=== PATIENT | female | born 1990 | race American Indian/Alaskan Native ===

== ENCOUNTER 2018-11-14 13:33 | Emergency (ER) | payer OTHER ==
--- NOTE | 2018-11-14 14:05 | Emergency Department Report ---
Chief Complaint: Nausea/Vomiting/Diarrhea Stated Complaint: VOMIT Time Seen by Provider: 11/14/18 14:03 - HPI History of Present Illness: pt states she has N/V that began at 5 pm yesterday states her LNMP was a month and a half ago states she took two test which were negative no abd pain denies diarrhea no fever no new foods, no water from different source, no recent travel (+) smoker occ drinker no drug use MSE screening note: Focused history performed Due to findings the following was ordered: CBC, BMP, hcg, UA ED Disposition for MSE Condition: Stable
[2018-11-14] MEDS ORDERED: ZOFRAN ODT PO ONE (14:06)
[2018-11-14] MEDS ORDERED: ZOFRAN ODT ONE (14:08)
[2018-11-14 15:14] LABS: Eosinophils % (Auto) 0.1 % (0.0-4.3); Hematocrit 30.8 % (30.3-42.9); Hemoglobin 10.2 gm/dl (10.1-14.3); Lymphocytes # (Auto) 1.7 K/mm3 (1.2-5.4); Mean Corpuscular HGB Conc 33 % (30-34); Mean Corpuscular Volume 80 fl (79-97); Monocytes # (Auto) 1.1 K/mm3 (0.0-0.8); Monocytes % (Auto) 5.9 % (0.0-7.3); Platelet Count 440 K/mm3 (140-440); Red Blood Count 3.83 M/mm3 (3.65-5.03); Red Cell Distribution Width 16.2 % (13.2-15.2)
[2018-11-14 15:35] LABS: BUN/Creatinine Ratio 18; Blood Urea Nitrogen 7 mg/dL (7-17); Calcium 8.9 mg/dL (8.4-10.2); Hemolysis Index 3
[2018-11-14 15:42] LABS: Bilirubin,Urine NEG (Negative); Blood,Urine NEG (Negative); Color,Urine Amber (Yellow); Mucus,Urine 3+ /HPF
[2018-11-14] MEDS ORDERED: NACL 0.9% 1000 ML 1,000 ML IV ONE ×2 (17:00→18:27)
[2018-11-14] MEDS ORDERED: ZOFRAN IV ONE (17:01)
[2018-11-14] MEDS ORDERED: ZOFRAN ONE (17:04)
[2018-11-14] MEDS ORDERED: REGLAN IV STA (17:37)
[2018-11-14] MEDS ORDERED: VITAMIN B-6 PO STA (17:37)
[2018-11-14] MEDS ORDERED: BENADRYL IV STA (17:37)
--- NOTE | 2018-11-14 18:33 | Emergency Department Report ---
ED N/V/D HPI - General Chief complaint: Nausea/Vomiting/Diarrhea Stated complaint: VOMIT Time Seen by Provider: 11/14/18 14:03 Source: patient Mode of arrival: Ambulatory Limitations: No Limitations - History of Present Illness Initial comments: 28-year-old obese [place] female last visit. 6 weeks ago. Since emerge department complaining of sudden onset of nausea and vomiting associated with soreness and malaise since the onset. Reports no fever, chills, sweats, chest pain, palpitations, hematemesis, hematochezia cheesy, calm hematuria. No trau ma, no headache, no blurred vision. MD complaint: nausea, vomiting -: Sudden Description of Vomiting: bilious Description of Diarrhea: other (no diarrhea. Only nausea and vomiting) Associated Abdominal Pain: No Radiation: none Quality: dull (dull soreness to the body from all the retching) Improves with: none Worsens with: none Associated Symptoms: denies other symptoms, myalgias, malaise, nausea/vomiting. denies: chest pain, cough, fever/chills, loss of appetite, syncope, weakness - Related Data Previous Rx's Medication Instructions Recorded Last Taken Type Doxylamine Succinate/Vit B6 1 each PO TID PRN #30 tablet. 11/14/18 Unknown Rx [Michael Baeza 10-10 mg Tablet] 118/Iron/Folate 6/Dha 1 each PO DAILY #30 capsule 11/14/18 Unknown Rx [[facility] Softgel] Allergies Allergy/AdvReac Type Severity Reaction Status Date / Time No Known Allergies Allergy Unverified 11/14/18 13:44 ED Review of Systems ROS: Stated complaint: VOMIT Other details as noted in HPI Constitutional: denies: chills, fever Eyes: denies: eye pain, eye discharge, vision change ENT: denies: ear pain, throat pain Respiratory: denies: cough, shortness of breath, wheezing Cardiovascular: denies: chest pain, palpitations Endocrine: no symptoms reported Gastrointestinal: denies: abdominal pain, nausea, diarrhea Genitourinary: denies: urgency, dysuria, discharge Musculoskeletal: denies: back pain, joint swelling, arthralgia Skin: denies: rash, lesions Neurological: denies: headache, weakness, paresthesias Psychiatric: denies: anxiety, depression Hematological/Lymphatic: denies: easy bleeding, easy bruising ED Past Medical Hx - Past Medical History Previous Medical History?: No - Surgical History Past Surgical History?: Yes Additional Surgical History: C section - Social History Smoking Status: Current Every Day Smoker Substance Use Type: Alcohol - Medications Home Medications: Home Medications Medication Instructions Recorded Confirmed Last Taken Type Doxylamine Succinate/Vit B6 1 each PO TID PRN #30 tablet.dr 11/14/18 Unknown Rx [Diclegis Dr 10-10 mg Tablet] 118/Iron/Folate 6/Dha 1 each PO DAILY #30 capsule 11/14/18 Unknown Rx [[facility] Softgel] ED Physical Exam - General Limitations: No Limitations General appearance: alert, in no apparent distress - Head Head exam: Present: atraumatic, normocephalic - Eye Eye exam: Present: normal appearance, PERRL Pupils: Present: normal accommodation - ENT ENT exam: Present: normal exam, normal orophraynx, mucous membranes moist - Neck Neck exam: Present: normal inspection, full ROM - Respiratory Respiratory exam: Present: normal lung sounds bilaterally. Absent: respiratory distress, wheezes, rales, rhonchi, chest wall tenderness, accessory muscle use, decreased breath sounds - Cardiovascular Cardiovascular Exam: Present: regular rate, normal rhythm. Absent: systolic murmur, diastolic murmur, rubs, gallop - GI/Abdominal GI/Abdominal exam: Present: soft, normal bowel sounds - Extremities Exam Extremities exam: Present: normal inspection, full ROM, normal capillary refill - Back Exam Back exam: Present: normal inspection - Neurological Exam Neurological exam: Present: alert, oriented X3, CN II-XII intact - Psychiatric Psychiatric exam: Present: normal affect, normal mood. Absent: anxious, flat affect, manic - Skin Skin exam: Present: warm, dry, intact, normal color. Absent: rash ED Course Vital Signs 11/14/18 11/14/18 11/14/18 14:03 19:10 21:02 Temperature 97.4 F L Pulse Rate 65 68 Respiratory 20 18 18 Rate Blood Pressure 138/85 Blood Pressure 129/82 [Left] O2 Sat by Pulse 100 100 100 Oximetry ED Medical Decision Making - Lab Data Result diagrams: 11/14/18 15:02 11/14/18 15:02 - Medical Decision Making 28-year-old female with nausea and vomiting and diffuse aches. No presyncope, headache, feels much better after the medication was provided. Fluids was given. She is ambulatory, able tolerate oral and she is urinating. Advised to follow with [facility] for definitive management by recommended for definitive care and management of her . She will be discharged with anti-medics and vitamins. Critical care attestation.: If time is entered above; I have spent that time in minutes in the direct care of this critically ill patient, excluding procedure time. ED Disposition Clinical Impression: Hyperemesis Disposition: DC- TO HOME OR SELFCARE Is pt being admited?: No Does the pt Need Aspirin: No Condition: Stable Instructions: Hyperemesis Gravidarum (ED) Prescriptions: Doxylamine Succinate/Vit B6 [Michael Baeza 10-10 mg Tablet] 1 each PO TID PRN #30 tablet. PRN Reason: Vomiting 118/Iron/Folate 6/Dha [[facility] Softgel] 1 each PO DAILY #30 capsule [facility] MD VERONICA [Primary Care Provider] - 3-5 Days [facility] [Provider Group] - 3-5 Days
[2018-11-14 21:29] VITALS: BP 129/82
== END 2018-11-14 21:05 | disposition home or self-care (01) ==
LOC: ED 13:33
DX: O21.9 Vomiting of pregnancy, unspecified (principal); O99.331 Smoking (tobacco) complicating pregnancy, first trimester; F17.200 Nicotine dependence, unspecified, uncomplicated; Z3A.01 Less than 8 weeks gestation of pregnancy
CPT/HCPCS: 36415; 80048; 81001; 84702; 85025; 96361; 96374; 96375; 99283; J1200; J2405; J2765; J7030; Q0162

== ENCOUNTER 2018-12-31 22:45 | Inpatient (IN) | payer OTHER, MEDICAID ==
--- NOTE | 2019-01-01 02:12 | Ultrasound Report ---
PROCEDURE: US OB FOLLOW UP TECHNIQUE: Real-time limited sonographic examination was performed for evaluation of for each fetus with image documentation (1 or more fetuses). HISTORY: MEASUREMENT OF FETUS DUE DATE COMPARISONS: None . FINDINGS: MATERNAL Uterus: Within normal limits . Cervix length:, 3.1 cm. Internal Os: closed . FETUS IUP: Single living intrauterine . Position: Vertex . Placental position: Anterior, without previa . Amniotic fluid volume: Normal Heart rate and rhythm: 141 BPM, Regular . anatomic survey: Not performed on this study . MEASUREMENTS BPD: 8.4 cm . HC: 32.2 cm . AC: 32.8 cm . FL: 7.2 cm . Mean Gestational Age (composite criteria): 36 weeks 4 days . Ratio biometry: Normal . Estimated Weight: 3010 grams Interval growth: No prior studies . Estimated Due Date (earliest scan): 01/25/2019 . IMPRESSION: 1. Single living intrauterine gestation at approximately 36 weeks 4 days . 2. EDC by US 01/25/2019 . This document is electronically signed by Dawn Perry DO., January 01 2019 02:10:53 AM ET
--- NOTE | 2019-01-01 02:13 | Ultrasound Report ---
PROCEDURE: US OB BPP WO NON-STRESS TECHNIQUE: Sonographic evaluation for breathing, movement, tone, and amniotic flui d volume was performed. HISTORY: [place] Fluid, ROWAN, BPP ...36 WEEKS COMPARISONS: None . FINDINGS: FETUS Amniotic fluid volume Normal-score 2. At least one vertical pocket >2 cm or more in vertical axis . breathing: Normal-score 2 . movement: Normal-score 2 . tone: Normal-score 2 . Score: 8 of 8 . IMPRESSION: Normal biophysical profile . This document is electronically signed by Dawn Perry DO., January 01 2019 02:11:43 AM ET
[2019-01-01] MEDS ORDERED: BICITRA PO ONE (02:19)
[2019-01-01] MEDS ORDERED: LACTATED RINGERS 1,000 ML ONE (02:19)
[2019-01-01] MEDS ORDERED: REGLAN IV ONE (02:19)
[2019-01-01] MEDS ORDERED: PEPCID IV ONE (02:19)
--- NOTE | 2019-01-01 02:25 | History and Physical Report ---
History of Present Illness Date of examination: 01/01/19 Chief complaint: SROM @1999 History of present illness: Pt is a 28yo BF EDC 01/25/19; EGA 36 4/7 weeks presents for [facility] complaining of SROM @ 8pm followed by RU's. Triage exam confirmed meconium fluid. She received limited care, but had 2 previous C Sections and will therefore proceed with a Repeat C Section. records are not available and GBS is unknown. Past History Past Medical History: no pertinent history Past Surgical History: section (x2) Family/Genetic History: none Social history: no significant social history, single - Obstetrical History Expected Date of Delivery: 01/25/19 Actual Gestation: 36 Week(s) 4 Day(s) : 3 Medications and Allergies Allergies Allergy/AdvReac Type Severity Reaction Status Date / Time No Known Allergies Allergy Unverified 11/14/18 13:44 Home Medications Medication Instructions Recorded Confirmed Last Taken Type Doxylamine Succinate/Vit B6 1 each PO TID PRN #30 tablet. 11/14/18 Unknown Rx [Michael Baeza 10-10 mg Tablet] 118/Iron/Folate 6/Dha 1 each PO DAILY #30 capsule 11/14/18 Unknown Rx [[facility] Softgel] Ferrous Sulfate [Feosol 325 MG tab] 325 mg PO BID #60 tablet 01/01/19 Unknown Rx HYDROcodone/APAP 5-325 [[place] 1 each PO Q6HR PRN #30 tablet 01/01/19 Unknown Rx 5/325] Ibuprofen [Motrin] 800 mg PO Q8HR PRN #30 tablet 01/01/19 Unknown Rx Vit-Fe Fumar-FA [ 1 tab PO QDAY #30 tablet 01/01/19 Unknown Rx Vitamin] Review of Systems All systems: negative - Vital Signs Vital signs: Vital Signs Temp Pulse Resp BP 98.0 F 76 16 163/88 01/01/19 00:44 01/01/19 00:44 01/01/19 00:44 01/01/19 00:44 Temp Pulse Resp BP Pulse Ox 98.0 F 78 16 124/79 01/01/19 00:44 01/01/19 02:12 01/01/19 00:44 01/01/19 02:12 - Physical Exam Breasts: Positive: deferred Cardiovascular: Regular rate Lungs: Positive: Clear to auscultation Abdomen: Positive: normal appearance Genitourinary (Female): Positive: normal external genitalia Vagina: Positive: other (meconium fluid) Uterus: Positive: enlarged Extremities: Positive: normal - Obstetrical FHR: category 1 Uterine Contraction Monitor Mode: External Cervical Dilatation: 2 Cervical Effacement Percentage: 80 station: -1 Uterine Contraction Pattern: Regular Uterine Tone Measurement Phase: Contraction Uterine Contraction Intensity: Moderate Results Result Diagrams: 01/01/19 02:26 All other labs normal. Ultrasound: report reviewed Assessment and Plan - Patient Problems (1) 36 weeks gestation of Onset Date: 01/01/19 Current Visit: Yes Status: Acute Plan to address problem: A: IUP @ 36 4/7 weeks in labor Previous C Section x 2 Meconium fluid P: Admit to L&D for a Repeat C Section (2) Previous section complicating Onset Date: 01/01/19 Current Visit: Yes Status: Acute
--- NOTE | 2019-01-01 02:33 | Anesthesia Day of Surgery ---
Anesthesia Day of Surgery - Day of Surgery Patient Examined: Yes Patient H&P Reviewed: Yes Patient is NPO: Yes
--- NOTE | 2019-01-01 02:33 | Anesthesia Consultation ---
Anesthesia Consult and Med Hx Date of service: 01/01/19 - Airway Anesthetic Teeth Evaluation: Poor ROM Head & Neck: Adequate Mental/Hyoid Distance: Adequate Mallampati Class: Class II Intubation Access Assessment: Good - Pulmonary Exam CTA: Yes - Cardiac Exam Cardiac Exam: RRR - Pre-Operative Health Status ASA Pre-Surgery Classification: ASA2 Proposed Anesthetic Plan: Spinal - Pulmonary Hx Asthma: No - Cardiovascular System Hx Hypertension: No - Central Nervous System Hx Seizures: No Hx Psychiatric Problems: No - Endocrine Hx Renal Disease: No Hx Hypothyroidism: No Hx Hyperthyroidism: No - Hematic Hx Anemia: Yes (PRE AND POST LABOR) Hx Sickle Cell Disease: No - Other Systems Hx Alcohol Use: Yes (O)
[2019-01-01 02:43] LABS: Basophils % (Auto) 0.2 % (0.0-1.8); Eosinophils # (Auto) 0.1 K/mm3 (0.0-0.4); Eosinophils % (Auto) 0.4 % (0.0-4.3); Hematocrit 36.9 % (30.3-42.9); Hemoglobin 11.7 gm/dl (10.1-14.3); Lymphocytes # (Auto) 1.9 K/mm3 (1.2-5.4); Lymphocytes % (Auto) 14.5 % (13.4-35.0); Mean Corpuscular HGB Conc 32 % (30-34); Mean Corpuscular Volume 80 fl (79-97); Monocytes # (Auto) 1.1 K/mm3 (0.0-0.8); Monocytes % (Auto) 8.5 % (0.0-7.3); Platelet Count 437 K/mm3 (140-440); Red Blood Count 4.63 M/mm3 (3.65-5.03); Red Cell Distribution Width 19.3 % (13.2-15.2)
[2019-01-01] MEDS ORDERED: PITOCin/NS 20 UNIT/1000ML DRIP 20 UNITS/1,000 ML BAG IV SCH ×2 (03:00→04:00)
[2019-01-01] MEDS ORDERED: LACTATED RINGERS 1,000 ML IV SCH (03:00)
[2019-01-01] MEDS ORDERED: ANCEF/STERILE WATER 2 GM/20 ML 2 GM/20 ML SYRINGE IV NR (03:00)
[2019-01-01] MEDS ORDERED: NACL 0.9% IR ONE (03:15)
[2019-01-01] MEDS ORDERED: WATER FOR IRRIG STERILE IR ONE (03:15)
[2019-01-01] MEDS ORDERED: LANSINOH TP PRN (03:43)
[2019-01-01] MEDS ORDERED: TUCKS PAD TP PRN (03:43)
[2019-01-01] MEDS ORDERED: ZOFRAN IV PRN ×2 (03:43→03:59)
[2019-01-01] MEDS ORDERED: NARCAN 0.4 MG/1 ML IV PRN ×2 (03:43→03:59)
[2019-01-01] MEDS ORDERED: MILK OF MAGNESIA PO PRN (03:43)
[2019-01-01] MEDS ORDERED: PHENERGAN PR PRN ×2 (03:43→03:59)
[2019-01-01] MEDS ORDERED: TYLENOL PO PRN (03:43)
[2019-01-01] MEDS ORDERED: NORCO 5/325 PO PRN (03:43)
[2019-01-01] MEDS ORDERED: MYLICON PO PRN (03:43)
[2019-01-01] MEDS ORDERED: TORADOL IV PRN (03:43)
--- NOTE | 2019-01-01 03:49 | Operative Report ---
Operative Report Operative Report: Date of procedure: 01/01/2019 Pre-operative diagnosis: 1. Intrauterine at 36-4/7 weeks in labor 2. Previous 2 3. premature rupture of membranes Post-operative diagnosis: Same Procedure name(s): Repeat low transverse section Surgeon: Nimesh Castano MD [place]: None Anesthesia: Spinal anesthesia EBL: 500 mL's Findings: A 30-35 g female infant Apgars 8 at 1 minute and 9 at 5 minutes. 2+ meconium fluid. Normal uterus and lower uterine segment adhesions. Normal tubes and ovaries bilaterally. Procedure: After the patient was prepped and draped in usual sterile fashion, and after satisfactory level of epidural anesthesia was obtained, the skin knife was used to make a transverse skin incision through the previous skin scar. The incision was excised down to layer of the fascia, which was nicked in the midline and extended laterally using the Bovie cautery. The rectus muscles were dissected off the rectus fascia both superiorly and inferiorly. The rectus bellies in the midline, and the peritoneum was entered under direct visualization. The peritoneal incision was extended superiorly and inferiorly. A bladder flap was created and the bladder blade was then placed. The uterus was scored in a curvilinear linear fashion, entered in the midline revealing clear amniotic fluid. The infant's head was delivered onto the surgical field, and the oropharynx and nasopharynx were bulb suctioned. The rest of the infant's body was delivered, cord was doubly clamped and cut and the infant was handed to the waiting respiratory team. Cord blood was then obtained. The placenta was manually removed from the uterus, and the uterus removed from its normal anatomical position. After gentle uterine lavage, the incision was inspected and found to be without extensions. It was then closed in 2 layers using 0 Vicryl suture in a running interlocking fashion, the second layer imbricating the first. After good hemostasis was achieved, copious amounts or irrigation was performed, and the gutters were suctioned free of blood and blood clots. The Tisseel sealant was sprayed across the uterine incision. The uterus was then returned to its normal anatomical position, and after excellent hemostasis assured, the peritoneum was re-approximated using 3-0 Vicryl suture in a running interlocking fashion, and then the rectus muscles were re- approximated using 3-0 Vicryl suture in a [id number] configuration. The fascia was then re-approximated using 0 Vicryl suture in running interlocking fashion. The subcutaneous layer was made hemostatic using Bovie cautery, the Tisseel sealant was sprayed across the fascial incision and the skin edges re- approximated using 4-0 Vicryl suture in a sub-cuticular fashion. Patient tolerated the procedure well was transported to recovery in stable condition.
[2019-01-01] MEDS ORDERED: PHENERGAN PO PRN (03:59)
--- NOTE | 2019-01-01 03:59 | Post Anesthesia Evaluation ---
- Post Anesthesia Evaluation Patient Participated: Yes Airway Patent: Yes Stable Respiratory Function: Yes Nausea/Vomiting: No Temp > 96.8F: Yes Pain Manageable: Yes Adequeate Hydration: Yes Anesthesia Complications: No Block Receding Appropriately: Yes Patient on Ventilator: No
[2019-01-01] MEDS ORDERED: D5LR 1,000 ML IV SCH (04:00)
[2019-01-01] MEDS ORDERED: SODIUM CHLORIDE FLUSH SYRINGE 10 ML IV PRN ×2 (04:00)
[2019-01-01 04:57] LABS: Bacteria,Urine 1+ /HPF (Negative); Bilirubin,Urine NEG (Negative); Blood,Urine SM (Negative); Color,Urine Amber (Yellow); Mucus,Urine FEW /HPF; Urobilinogen,Urine < 2.0 mg/dL (<2.0)
[2019-01-01 05:04] LABS: Amphetamine Screen,Urine PRESUMPTIVE NEGATIVE; Benzodiazepines Screen,Urine PRESUMPTIVE NEGATIVE; Cocaine Screen,Urine PRESUMPTIVE NEGATIVE; Methadone Screen,Urine PRESUMPTIVE NEGATIVE; Opiate Screen,Urine PRESUMPTIVE NEGATIVE
[2019-01-01 05:20] LABS: Cannabinoid Screen,Urine PRESUMPTIVE POSITIVE
[2019-01-01] MEDS: PERCOCET 5/325 PO PRN ×3 (08:14→21:51)
[2019-01-01] MEDS: ANCEF/NS 1 GM/50 ML 1 GM/50 ML BAG IV SCH ×2 (10:36→18:37)
[2019-01-01] MEDS: FEOSOL PO SCH (10:40)
[2019-01-01] MEDS: IBUPROFEN PO PRN ×2 (15:42→21:54)
[2019-01-01 18:23] LABS: Hematocrit 27.3 % (30.3-42.9); Hemoglobin 8.9 gm/dl (10.1-14.3)
[2019-01-02] MEDS ORDERED: M-M-R II VACCINE SUB-Q ONE (03:44)
[2019-01-02] MEDS: PERCOCET 5/325 PO PRN ×2 (03:51→10:53)
[2019-01-02] MEDS: IBUPROFEN PO PRN ×3 (03:51→23:00)
[2019-01-02] MEDS ORDERED: BOOSTRIX IM ONE (06:00)
[2019-01-02] MEDS: FEOSOL PO SCH (10:53)
[2019-01-02] MEDS: PRENATAL VITAMIN PO SCH (10:53)
[2019-01-02] MEDS ORDERED: INFED IM ONE (12:06)
--- NOTE | 2019-01-02 12:06 | Progress Note ---
Assessment and Plan A: POD#1 s/p Repeat c/s Pain well controlled Asymptomatic anemia Stable P: Routine PO orders Infed 100mg IM x1 dose Subjective - Subjective Date of service: 01/02/19 Principal diagnosis: POD#1 s/p Repeat C/S Patient reports: appetite normal, voiding normally, pain well controlled, ambulating normally : doing well Objective - Vital Signs Latest vital signs: Vital Signs Temp Pulse Resp BP BP Pulse Ox 01/02/19 07:53 97.8 F 72 18 114/74 100 01/02/19 00:21 98.2 F 74 18 121/72 97 01/01/19 20:37 98.2 F 91 H 20 133/88 99 01/01/19 16:15 97.3 F L 76 18 138/84 100 Intake and Output 01/01/19 01/02/19 01/02/19 23:59 07:59 15:59 Intake Total 720 Output Total 1500 Balance -780 Intake: Oral 720 Output: Urine 1500 Void 1500 Other: Total, Intake Amount 240 Total, Output Amount 500 # Voids Void 1 - Exam Breasts: Present: normal Cardiovascular: Present: Regular rate, Normal S1, Normal S2 Lungs: Present: Clear to auscultation, Normal air movement Abdomen: Present: normal appearance, soft, normal bowel sounds Vulva: both: normal Uterus: Present: fundal height below umbilicus (-1) Extremities: Present: normal Deep Tendon Reflex Grade: Normal +2 Incision: Present: normal, dry, intact, dressed (Pressure dressing CDI) - Labs Labs: Abnormal lab results 01/01/19 Range/Units 18:04 Hgb 8.9 L (10.1-14.3) gm/dl Hct 27.3 L D (30.3-42.9) %
[2019-01-03] MEDS: PERCOCET 5/325 PO PRN ×3 (05:32→22:26)
[2019-01-03] MEDS: IBUPROFEN PO PRN ×3 (05:32→22:26)
[2019-01-03] MEDS ORDERED: BOOSTRIX IM ONE (06:00)
[2019-01-03] MEDS: PRENATAL VITAMIN PO SCH (09:51)
[2019-01-03] MEDS: FEOSOL PO SCH (09:51)
--- NOTE | 2019-01-03 11:21 | Progress Note ---
Assessment and Plan A: /postop day 2 S/P repeat low transverse section. Anemia secondary to and blood loss. P: Continue iron supplementation. Encouraged patient to ambulate. Subjective - Subjective Date of service: 01/03/19 Principal diagnosis: POD#2 s/p Repeat LTCS Interval history: /postop day 2 S/P repeat low transverse section. Doing well. Voiding without difficulty. Ambulating well. Tolerating a regular diet without nausea or vomiting. Patient denies headache, dizziness, chest pain, cough, shortness of breath, abdominal pain, leg pain, or heavy vaginal bleeding. Patient reports: appetite normal, voiding normally, pain well controlled, flatus, ambulating normally, no dizzy ambulation, no bowel movement, no nauseated [place]: doing well Objective - Vital Signs Latest vital signs: Vital Signs Temp Pulse Resp BP Pulse Ox 01/03/19 08:34 97.6 F 63 20 112/75 99 01/03/19 01:24 98.5 F 69 20 90/44 99 01/02/19 17:56 98.7 F 82 18 118/73 100 Intake and Output 01/02/19 01/03/19 01/03/19 23:59 07:59 15:59 Intake Total 960 480 Balance 960 480 Intake: Oral 600 Intake, Free Water 360 480 Other: Total, Intake Amount 600 # Voids Void 2 3 - Exam Cardiovascular: Present: Regular rate, Normal S1, Normal S2 Lungs: Present: Clear to auscultation Abdomen: Present: normal appearance, soft, normal bowel sounds. Absent: distention, tenderness, guarding, rigidity Uterus: Present: normal, firm, fundal height below umbilicus. Absent: boggines s, tenderness Extremities: Present: normal. Absent: tenderness, edema Incision: Present: normal, dry, intact
[2019-01-04] MEDS: IBUPROFEN PO PRN (07:42)
[2019-01-04] MEDS: PERCOCET 5/325 PO PRN (07:44)
--- NOTE | 2019-01-04 13:09 | Progress Note ---
Assessment and Plan A: /postop day 3 S/P repeat low transverse section. Anemia secondary to and blood loss. P: Discharge patient today. /postop discharge instructions and warning signs discussed with patient. Advised patient to continue taking her vitamins and iron supplements. Care of incision and activity restrictions discussed with pt. Advised pt. to avoid intercourse, driving, lifting and housework, stair climbing, tub baths (pt. may take showers). Advised pt. to follow up with her OB provider (pt. is incarcerated) in 1 week for incision check. Pt. voiced understanding of all instructions. Subjective - Subjective Date of service: 01/04/19 Principal diagnosis: POD#3 s/p Repeat LTCS Interval history: /postop day 3 S/P repeat low transverse section. Doing well. Voiding without difficulty. Ambulating well. Tolerating a regular diet without nausea or vomiting. Patient denies headache, dizziness, chest pain, cough, shortness of breath, abdominal pain, leg pain, or heavy vaginal bleeding. Patient reports: appetite normal, voiding normally, pain well controlled, flatus, ambulating normally, no dizzy ambulation, no nauseated [place]: doing well Objective - Vital Signs Latest vital signs: Vital Signs Temp Pulse Resp BP BP Pulse Ox 01/04/19 07:36 98.1 F 66 18 116/74 100 01/04/19 01:00 98.2 F 53 L 18 110/72 100 01/03/19 16:50 97.7 F 61 22 125/74 100 Intake and Output 01/03/19 01/04/19 01/04/19 23:59 07:59 15:59 Intake Total 480 480 720 Balance 480 480 720 Intake: Oral 240 Intake, Free Water 480 480 480 Other: Total, Intake Amount 120 # Voids Void 2 3 1 - Exam Cardiovascular: Present: Regular rate, Normal S1, Normal S2, No murmurs Lungs: Present: Clear to auscultation Abdomen: Present: normal appearance, soft, normal bowel sounds. Absent: distention, tenderness, guarding, rigidity Uterus: Present: normal, firm, fundal height below umbilicus. Absent: bogginess, tenderness Extremities: Present: normal. Absent: tenderness, edema Incision: Present: normal, dry, intact
--- NOTE | 2019-01-04 13:12 | Discharge Summary ---
Providers - Providers Date of Admission: 01/01/19 02:00 Date of discharge: 01/04/19 Attending physician: ANCELMO WEST MD 01/01/19 14:06 Consult to Case Management [CONS] Routine Services Needed at Discharge: Cad Designer Drafter Notified:: Lorelei Primary care physician: ANCELMO WEST MD Hospitalization Reason for admission: rupture of membranes Delivery: Procedure: repeat low transverse Incision: normal, dry, intact Other procedures: none complications: none Discharge diagnosis: IUP at term delivered [place] baby: female Pertinent studies: Labs Hospital course: Normal course. Condition at discharge: Good Disposition: DC-01 TO HOME OR SELFCARE - Discharge Diagnoses (1) Term delivered Status: Acute (2) Anemia due to blood loss Status: Acute Plan - Discharge Medications Prescriptions: Ferrous Sulfate [Feosol 325 MG tab] 325 mg PO BID #60 tablet Ibuprofen [Motrin] 800 mg PO Q8HR PRN #30 tablet PRN Reason: Pain, Moderate (4-6) HYDROcodone/APAP 5-325 [[place] 5/325] 1 each PO Q6HR PRN #30 tablet PRN Reason: Pain Vit-Fe Fumar-FA [ Vitamin] 1 tab PO QDAY #30 tablet - Provider Discharge Summary Activity: routine, no sex for 6 weeks, no heavy lifting 4 weeks, no strenuous exercise Diet: routine Instructions: routine Additional instructions: Continue taking your vitamins and iron supplements. Call your doctor immediately for: * Fever > 100.5 * Heavy vaginal bleeding ( >1 pad per hour) * Severe persistent headache * Shortness of breath * Reddened, hot, painful area to leg or breast * Drainage or odor from incision. * Keep incision clean and dry at all times and follow doctor's instructions regarding bathing/showering - Follow up plan Follow up: ANCELMO WEST MD [Primary Care Provider] - 7 Days Forms: [facility] Discharge Summary, Discharge Signature Page
[2019-01-04 13:46] VITALS: BP 138/85
== END 2019-01-04 14:45 | DRG 788 ==
LOC: TRG 22:45 → EEVIPCON 22:45 → TRG 23:00 → LD 01-01 01:00 → TRG 01-01 03:32 → APU 01-01 04:58 → OB 01-01 05:33
PROVIDERS: ADMIT Obstetrics & Gynecology; ATTEND Obstetrics & Gynecology
PROC: 10D00Z1 Extraction of Products of Conception, Low, Open Approach (ICD-10-PCS; principal; 2019-01-01)
PROC: 3E0234Z Introduction of Serum, Toxoid and Vaccine into Muscle, Percutaneous Approach (ICD-10-PCS; 2019-01-02)
DX: O34.211 Maternal care for low transverse scar from previous cesarean delivery (principal); O99.314 Alcohol use complicating childbirth; O42.913 Preterm premature rupture of membranes, unspecified as to length of time between rupture and onset of labor, third trimester; O99.02 Anemia complicating childbirth; D50.0 Iron deficiency anemia secondary to blood loss (chronic); O77.0 Labor and delivery complicated by meconium in amniotic fluid; Z72.89 Other problems related to lifestyle; Z3A.36 36 weeks gestation of pregnancy; Z37.0 Single live birth; Z23 Encounter for immunization
CPT/HCPCS: 36415; 76816; 76819; 80307; 81001; 85014; 85018; 85025; 85027; 86592; 86706; 86762; 86850; 86900; 86901; 87086; 87806; 90715; G0378; C9250; J0690; J1750; J1885; J2590; J2765; J7120; J7121; Q0169